=== PATIENT | female | born 1935 | race Caucasian/White ===

== ENCOUNTER 2019-11-28 20:31 | Emergency (ER) | payer MEDICARE, BC ==
--- NOTE | 2019-11-28 21:02 | EDM.PDOC ---
ED HPI GENERAL MEDICAL PROBLEM - General Stated Complaint: DIARREA Time Seen by Provider: 11/28/19 21:00 Source of Information: Reports: Patient History Limitations: Reports: No Limitations - History of Present Illness INITIAL COMMENTS - FREE TEXT/NARRATIVE: 84-year-old female who reports approximately 10 days ago developed diarrhea and some mild abdominal cramping. The diarrhea persisted and she noted she had some bright red blood in her stool last weekend. She was seen in clinic on this previous Sunday and was given bismuth subsalicylate tablets take. The patient reports she has also been taken Imodium and she persists with diarrhea and some abdominal discomfort. She also noted that today she developed additional bright red blood in her stool. No mucus. No fevers. She has felt somewhat chilled today. The discomfort in her abdomen is generalized. She rates the discomfort as a 4/10. It is a mild cramp. She has had some nausea today but no vomiting. She has been able to drink liquids well but has not been eating that well. She reports that she had a similar episode to this about 5 years ago and was told that she had colitis. No cough. No difficulty breathing. No dysuria or hematuria. There are no other associated signs or symptoms. There are no other modifying factors. 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: Other Medication(s) (Imodium and bismuth subsalicylate) - Related Data Allergies Allergy/AdvReac Type Severity Reaction Status Date / Time gentamicin Allergy Hives Verified 08/17/16 08:53 nickel Allergy Rash Verified 03/28/16 08:55 codeine AdvReac Nausea and Verified 08/18/16 07:22 Vomiting mycins Allergy Intermediate don't work Uncoded 03/28/16 09:04 Home Meds: Home Meds Aspirin 325 mg PO DAILY 04/28/15 [History] Calcium Carb, Citrate/Vit D3 [Citracal + D ER] 1 ea PO DAILY 04/28/15 [History] Cholecalciferol (Vitamin D3) [Vitamin D3] 1,000 units PO DAILY 04/28/15 [History ] Cyanocobalamin (Vitamin B-12) [Vitamin B-12] 500 mcg PO DAILY 04/28/15 [History] Diclofenac Sodium [Voltaren XR] 100 mg PO DAILY 04/28/15 [History] Flaxseed [Flaxseed Oil] 1,000 mg PO DAILY 04/28/15 [History] Glucosam/Chondr/Collagn/Hyalur [Glucosamine & Chondroitin Cap] 1 ea PO DAILY [History] Moexipril/Hydrochlorothiazide [Moexipril-HCTZ 15-12.5 MG] 1 ea PO DAILY [History] Multivitamin [Daily Vitamin] 1 ea PO DAILY 04/28/15 [History] Eastland-3 Fatty Acids [Eastland-3] 1,000 mg PO DAILY 04/28/15 [History] Potassium Chloride 20 meq PO DAILY 04/29/15 [History] Beta-Carotene(A) w/C & E/Min [Prosight] 1 each PO DAILY 02/28/16 [History] Diphenoxylate HCl/Atropine [Lomotil] 1 tab PO Q6H PRN 08/17/16 [History] Ondansetron [Zofran ODT] 4 mg PO Q6H PRN #8 tab.dis 11/29/19 [Rx] metroNIDAZOLE [Flagyl] 500 mg PO BID 7 Days #14 tablet 11/29/19 [Rx] Past Medical History HEENT History: Reports: Cataract Cardiovascular History: Reports: Hypertension Respiratory History: Reports: Other (See Below) (Chronic bronchitis) Gastrointestinal History: Reports: Hemorrhoids, Other (See Below) (Colitis in the past) Musculoskeletal History: Reports: Arthritis, Osteoarthritis - Infectious Disease History Infectious Disease History: Reports: Chicken Pox, Measles, Mumps, Scarlet Fever - Past Surgical History HEENT Surgical History: Reports: Adenoidectomy, Cataract Surgery, Tonsillectomy GI Surgical History: Reports: Appendectomy, Cholecystectomy, Colonoscopy, Other (See Below) Female Surgical History: Reports: Breast Biopsy, Hysterectomy, Oophorectomy Musculoskeletal Surgical History: Reports: Other (See Below) Social & Family History - Tobacco Use Smoking Status *Q: Never Smoker - Caffeine Use Caffeine Use: Reports: None - Living Situation & Occupation Occupation: Retired Social History Comment: Lives by herself ED ROS GENERAL - Review of Systems Review Of Systems: See Below Constitutional: Reports: Fatigue HEENT: Reports: No Symptoms Respiratory: Reports: No Symptoms Cardiovascular: Reports: No Symptoms Endocrine: Reports: No Symptoms GI/Abdominal: Reports: Abdominal Pain (Mild), Diarrhea, Hematochezia. Denies: Mucous in Stool : Reports: No Symptoms Musculoskeletal: Reports: No Symptoms Skin: Reports: No Symptoms Neurological: Reports: No Symptoms Hematologic/Lymphatic: Reports: No Symptoms Immunologic: Reports: No Symptoms ED EXAM, GENERAL - Physical Exam Exam: See Below Exam Limited By: No Limitations General Appearance: Alert, WD/WN, Mild Distress, Other (Nontoxic) Eye Exam: Bilateral Eye: EOMI, Normal Inspection Ears: Normal External Exam Ear Exam: Bilateral Ear: Auricle Normal Nose: Normal Inspection, Normal Mucosa, No Blood Throat/Mouth: Normal Voice, No Airway Compromise, Other (Somewhat dry mucous membranes) Head: Atraumatic, Normocephalic Neck: Normal Inspection, Supple, Non-Tender, Full Range of Motion Respiratory/Chest: No Respiratory Distress, Lungs Clear, Normal Breath Sounds, No Accessory Muscle Use, Chest Non-Tender Cardiovascular: Normal Peripheral Pulses, Regular Rate, Rhythm, No Edema, No JVD Peripheral Pulses: 2+: Radial (L), Radial (R) GI/Abdominal: Normal Bowel Sounds, Soft, No Mass, Tender (Mild diffuse tenderness). No: Guarding, Rebound Extremities: Normal Inspection, Normal Range of Motion, Non-Tender, No Pedal Edema, Normal Capillary Refill Neurological: Alert, Oriented, CN II-XII Intact, Normal Cognition, No Motor/ Sensory Deficits Psychiatric: Normal Affect Skin Exam: Warm, Dry, Intact, Normal Color, No Rash Course - Vital Signs Last Recorded V/S: Last Vital Signs Temp 36.6 C 11/28/19 20:40 Pulse 90 11/28/19 20:40 Resp 14 11/28/19 20:40 BP 164/84 H 11/28/19 20:40 Pulse Ox 93 L 11/28/19 20:40 - Orders/Labs/Meds Orders: Active Orders 24 hr Category Date Time Status Abdomen Pelvis w Cont [CT] Stat Exams 11/28/19 22:52 Taken Sodium Chloride 0.9% [Saline Flush] Med 11/28/19 21:36 Active 10 ml FLUSH ASDIRECTED PRN Peripheral IV Insertion Adult [OM.PC] Routine Oth 11/28/19 21:36 Ordered Medication Orders Sodium Chloride (Saline Flush) 10 ml FLUSH ASDIRECTED PRN PRN Reason: Keep Vein Open Last Admin: 11/28/19 22:05 Dose: 10 ml Labs: Laboratory Tests 11/28/19 11/28/19 11/28/19 Range/Units 21:50 21:50 21:50 WBC 8.1 (4.5-12.0) X10-3/uL RBC 3.82 (3.23-5.20) x10(6)uL Hgb 12.2 (11.5-15.5) g/dL Hct 36.9 (30.0-51.3) % MCV 96.6 H (80-96) fL MCH 32.0 (27.7-33.6) pg MCHC 33.2 (32.2-35.4) g/dL RDW 13.1 (11.5-15.5) % Plt Count 268 (125-369) X10(3)uL MPV 6.3 L (7.4-10.4) fL Neut % (Auto) 69.8 (46-82) % Lymph % (Auto) 11.1 L (13-37) % Sumter % (Auto) 17.3 H (4-12) % Eos % (Auto) 2 (1.0-5.0) % Baso % (Auto) 0 (0-2) % Neut # (Auto) 5.7 (1.6-8.3) # Lymph # (Auto) 0.9 (0.6-5.0) # Sumter # (Auto) 1.4 H (0.0-1.3) # Eos # (Auto) 0.1 (0.0-0.8) # Baso # (Auto) 0.0 (0.0-0.2) # Sodium 136 (135-145) mmol/L Potassium 5.3 (3.5-5.3) mmol/L Chloride 102 (100-110) mmol/L Carbon Dioxide 23 (21-32) mmol/L BUN 22 H (7-18) mg/dL Creatinine 1.5 H (0.55-1.02) mg/dL Est Cr Clr Drug Dosing TNP Estimated GFR (MDRD) 33 L (>60) BUN/Creatinine Ratio 14.7 (9-20) Glucose 129 H (80-116) mg/dL Lactic Acid 1.1 (0.4-2.0) mmol/L Calcium 9.4 (8.6-10.2) mg/dL Magnesium (1.8-2.5) mg/dL Total Bilirubin 0.4 (0.1-1.3) mg/dL AST 15 (5-25) IU/L ALT 22 (12-36) U/L Alkaline Phosphatase 64 (56-112) IU/L C-Reactive Protein (0.5-0.9) mg/dL Total Protein 7.2 (6.0-8.0) g/dL Albumin 3.4 (3.2-4.6) g/dL Globulin 3.8 g/dL Albumin/Globulin Ratio 0.9 11/28/19 11/28/19 Range/Units 21:50 21:50 WBC (4.5-12.0) X10-3/uL RBC (3.23-5.20) x10(6)uL Hgb (11.5-15.5) g/dL Hct (30.0-51.3) % MCV (80-96) fL MCH (27.7-33.6) pg MCHC (32.2-35.4) g/dL RDW (11.5-15.5) % Plt Count (125-369) X10(3)uL MPV (7.4-10.4) fL Neut % (Auto) (46-82) % Lymph % (Auto) (13-37) % [place] % (Auto) (4-12) % Eos % (Auto) (1.0-5.0) % Baso % (Auto) (0-2) % Neut # (Auto) (1.6-8.3) # Lymph # (Auto) (0.6-5.0) # Sumter # (Auto) (0.0-1.3) # Eos # (Auto) (0.0-0.8) # Baso # (Auto) (0.0-0.2) # Sodium (135-145) mmol/L Potassium (3.5-5.3) mmol/L Chloride (100-110) mmol/L Carbon Dioxide (21-32) mmol/L BUN (7-18) mg/dL Creatinine (0.55-1.02) mg/dL Est Cr Clr Drug Dosing Estimated GFR (MDRD) (>60) BUN/Creatinine Ratio (9-20) Glucose (80-116) mg/dL Lactic Acid (0.4-2.0) mmol/L Calcium (8.6-10.2) mg/dL Magnesium 1.3 L (1.8-2.5) mg/dL Total Bilirubin (0.1-1.3) mg/dL AST (5-25) IU/L ALT (12-36) U/L Alkaline Phosphatase (56-112) IU/L C-Reactive Protein 3.2 H* (0.5-0.9) mg/dL Total Protein (6.0-8.0) g/dL Albumin (3.2-4.6) g/dL Globulin g/dL Albumin/Globulin Ratio Meds: Medications Generic Name Dose Route Start Last Admin Trade Name Freq PRN Reason Stop Dose Admin Sodium Chloride 10 ml 11/28/19 21:36 11/28/19 22:05 Saline Flush FLUSH 10 ml ASDIRECTED PRN Administration Keep Vein Open Discontinued Medications Generic Name Dose Route Start Last Admin Trade Name Freq PRN Reason Stop Dose Admin Sodium Chloride 1,000 mls @ 999 mls/hr 11/28/19 21:37 11/28/19 22:05 Normal Saline IV 11/28/19 22:37 999 mls/hr .BOLUS ONE Administration Iopamidol 100 ml 11/28/19 23:01 11/28/19 23:09 Isovue-370 (76%) IV 11/28/19 23:02 80 ml . 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 There was mild wall thickening of the hepatic flexure that could represent mild colitis. This was per the radiologist. - Re-Assessments/Exams Free Text/Narrative Re-Assessment/Exam: 11/29/19 00:15: Patient has had no further stools while she has been in the emergency department. Her abdomen is soft and nontender at this point. She has remained vitally stable while in the emergency department and has had no fever. The CT scan of her abdomen and pelvis shows may be mild colitis in her hepatic flexure. He has received normal saline 1 L as a bolus and Zofran 4 mg IV. The patient feels improved. I think she will be stable for discharge and discussing the options with the patient and her daughter, the patient and the daughter feel comfortable with the plan for discharge. In fact, she would want to be discharged. I will place patient on Flagyl 500 mg twice daily for 10 days and have her withhold any further Imodium therapy. She is to increase her fluid intake. She is to rest. She is to follow-up with her primary provider this next week. Precautions and reasons for return to the emergency department were discussed with the patient and with her daughter prior to the patient's discharge. Departure - Departure Time of Disposition: 01:00 Disposition: Home, Self-Care 01 Condition: Good (Improved) Clinical Impression: Colitis, Dehydration - Discharge Information Prescriptions: metroNIDAZOLE [Flagyl] 500 mg PO BID 7 Days #14 tablet Ondansetron [Zofran ODT] 4 mg PO Q6H PRN #8 tab.dis PRN Reason: Nausea/vomiting/abd discomfort Instructions: Abdominal Pain, Adult, [id number], Colitis, Dehydration, Elderly, [id number], Diarrhea, Adult, [id number] Referrals: Danny Rahman MD [Primary Care Provider] - Forms: ED Department Discharge Additional Instructions: You have mild colitis of a small portion of your colon. You also have some dehydration but we corrected this somewhat with the IV fluids. Your blood tests were reassuring. The CT scan of your abdomen and pelvis only showed the mild colitis and otherwise nothing of an acute nature. You should increase your fluid intake. You should rest. Medication as prescribed (Flagyl 500 mg, Zofran 4 mg ODT). Do not take any more Imodium for your diarrhea. Back to the emergency department for worse blood in your stool, vomiting, worsening abdominal pain, high fever or any other concerning sign or symptom. Sepsis Event Note - Focused Exam Vital Signs: Vital Signs Temp Pulse Resp BP Pulse Ox 11/28/19 20:40 36.6 C 90 14 164/84 H 93 L Date Exam was Performed: 11/29/19 Time Exam was Performed: 03:40 - My Orders Last 24 Hours: My Active Orders 11/28/19 21:36 Sodium Chloride 0.9% [Saline Flush] 10 ml FLUSH ASDIRECTED PRN Peripheral IV Insertion Adult [OM.PC] Routine 11/28/19 22:52 Abdomen Pelvis w Cont [CT] Stat - Assessment/Plan Last 24 Hours: My Active Orders 11/28/19 21:36 Sodium Chloride 0.9% [Saline Flush] 10 ml FLUSH ASDIRECTED PRN Peripheral IV Insertion Adult [OM.PC] Routine 11/28/19 22:52 Abdomen Pelvis w Cont [CT] Stat
[2019-11-28] MEDS ORDERED: Sodium Chloride 0.9% 10 ML Syringe FLUSH PRN (21:36)
[2019-11-28] MEDS ORDERED: Sodium Chloride 0.9% 1,000 ML IV ONE (21:37)
[2019-11-28] MEDS ORDERED: Ondansetron 4 MG/2 ML SDV IVPUSH ONE (21:37)
[2019-11-28] MEDS ORDERED: Iopamidol 755 Mg/ML 100 ML Bottle IV ONE (23:01)
[2019-11-29] MEDS ORDERED: metroNIDAZOLE 500 MG Tab PO ONE (00:24)
[2019-11-29 04:44] VITALS: BP 165/85; PULSE 85
== END 2019-11-29 01:06 | disposition home or self-care (01) ==
LOC: FB.ED 20:31
DX: E86.0 Dehydration (principal); K52.9 Noninfective gastroenteritis and colitis, unspecified; I10 Essential (primary) hypertension; M19.90 Unspecified osteoarthritis, unspecified site; Z88.5 Allergy status to narcotic agent; Z88.8 Allergy status to other drugs, medicaments and biological substances; Z79.82 Long term (current) use of aspirin; Z79.899 Other long term (current) drug therapy
CPT/HCPCS: 36415; 74177; 80053; 83605; 83735; 85025; 86140; 96374; 99284; A9270; J2405; J7030; Q9967